=== PATIENT | female | born 1980 | race Two or more races ===

== ENCOUNTER → 2024-10-05 | Outpatient (CLI) | payer MEDICAID, SELFPAY ==
--- NOTE | 2024-10-05 15:59 | XR_ITS ---
Examination: Wrist, left 3 views Technique: Wrist AP, oblique, lateral 3 views Examination time: October 05, 2024 1615 hours INDICATIONS: Left wrist pain beginning 5 minutes ago. FINDINGS: No fracture or dislocation. No erosive or other significant arthritic change IMPRESSION: No erosive or other significant arthritic change
--- NOTE | 2024-10-05 15:59 | XR_ITS ---
Examination: Hand, left 3 views Technique: Hand AP, oblique, lateral 3 views Date and time of exam: October 05, 2024 at 1608 hours INDICATIONS: Left hand and wrist pain beginning 5 minutes ago FINDINGS: Mild juxta-articular bone demineralization. No fracture or dislocation. No erosive or other significant arthritic change. IMPRESSION: No erosive or other significant arthritic change.
== END | disposition home or self-care (01) ==
PROVIDERS: PCP Nurse Practitioner Family; Referring Provider Nurse Practitioner Gerontology; Visit Provider Nurse Practitioner Gerontology
DX: M25.532 Pain in left wrist (principal); M79.642 Pain in left hand
CPT/HCPCS: 73110; 73130